=== PATIENT | female | born 1980 | race African-American/Black ===

== ENCOUNTER 2017-05-27 12:30 | Inpatient (IN) | payer OTHER ==
--- NOTE | ~2017-05-27 | US49 ---
[facility] A Service of [facility] RADIOLOGY TEXT RESULTS PATIENT: ALENA WELLER LOCATION: A : [birth year] UNIT #: [id number] AGE: [address]: Geovanna Stevens MD SEX: F ORDER DR: [id number] [facility] [address] [place], [place] [address] [id number] I MR#: [id number] Acc #: [id number] NAME: ALENA WELLER : 1980 SEX: F STUDY DATE/TIME: 05/27/2017 14:52 UNIT: [facility] ROOM: [facility] STUDY DESCRIPTION: US Extremity Non Vasc Complete Attending Physician: Geovanna Stevens M.D. Referring Physician: Geovanna Stevens M.D. Ordering Physician: Francesco Lima M.D. Primary Care Physician: Geovanna Stevens M.D. MEDICAL IMAGING REPORT This report is preliminary unless electronic signature is present EXAM Ultrasound extremity, nonvascular complete. HISTORY Find abscess. Right axilla abscess x1 month with pain. No drainage. TECHNIQUE/FINDINGS Real-time ultrasonography of the right axilla was performed. In the area of palpable abnormality indicated by the patient, there is an irregularly contoured collection with internal debris/low-level echoes. It measures about 4.26 cm x 4.25 cm x 2.66 cm. Given the patient's stated history, this would be consistent with abscess. In the appropriate clinical context, other types of fluid collections could be considered including evolving hematoma. Doppler interrogation not utilized. Prior to any intervention, consider assessment with Doppler imaging to assess vascularity in this region. IMPRESSION 1. Irregularly marginated subcutaneous collection in the right axilla in the area of palpable abnormality indicated by the patient measuring 4.26 cm x 4.25 cm x 2.66 cm. It contains extensive diffuse low-level echoes. Given the patient's stated history, this is consistent with subcutaneous axillary abscess. In the appropriate clinical context, other etiologies of this complicated fluid could be considered. NOTE Doppler interrogation was not performed. Prior to any intervention, Doppler assessment may be useful to assess for regional vascularity. Dictated by... Kennedy Villasenor M.D. [facility] A Service of [facility] RADIOLOGY TEXT RESULTS PATIENT: ALENA WELLER LOCATION: [facility] 233-01 : [birth year] UNIT #: [id number] AGE: [address]: Geovanna Stevens MD SEX: F ORDER DR: THIS IS AN ELECTRONICALLY VERIFIED REPORT Kennedy Villasenor M.D. at 05/27/2017 10:43 PM Matt TD: 05/27/2017 18:10 JOB #: [id number] MEDICAL IMAGING REPORT Page 1 of 1 COPY
--- NOTE | ~2017-05-27 | DS ---
Unit #: [id number] #: [id number] Patient: ALENA WELLER [id number] [address] [place], [place] [address] [id number] I MR#: [id number] NAME: ALENA WELLER ROOM: 233 Age: 36 Sex: F Admission Date: 05/27/2017 : 1980 Discharge Date: Attending Physician: Geovanna Stevens M.D. Referring Physician: Geovanna Stevens M.D. Primary Care Physician: Geovanna Stevens M.D. DISCHARGE SUMMARY DISCHARGE DIAGNOSES 1. Right axillary abscess status post I and D per surgery; status post negative wound culture; was treated with IV Vancomycin and Zosyn in the hospital; will be discharging on p.o. Augmentin for seven more days. 2. History of hypertension, stable, not on any medications at this point. 3. Anemia of chronic disease, stable. Discharge hemoglobin and hematocrit 9.2 and 27.8. 4. Hyponatremia, discharging with p.o. fluid restriction to 1.5 liters per day. Patient is to follow up with primary care physician next Thursday to check BMP. DISCHARGE MEDICATIONS 1. Augmentin 875 mg p.o. b.i.d. for seven days 2. Roulette 7.5/325 one tablet every 4 p.r.n., prescription written by surgery DISPOSITION Going home with home health for wound care. Outpatient follow up with primary care physician in 2-3 days, preferably next Thursday. Again, to check BMP and sodium level. HISTORY OF PRESENT HOSPITAL STAY AND ACTIVE PROBLEMS Please see H and P done by me for initial presentation of this female. Active problems diagnosed: 1. Right axillary abscess status post surgery evaluation, status post I and D as above. Negative culture. Patient with low-grade fever at 99. Clear per surgery to be discharged with local wound care; will be discharged on p.o. Augmentin, again status post IV Zosyn and Vancomycin for two days. 2. History of hypertension, currently stable. Not on any blood pressure medications. Monitor. Outpatient follow up with primary. 3. Hyponatremia. Restrict p.o. fluids to 1.5 liters per day. Check BMP next Thursday at primary care physician's office. 4. Anemia of chronic disease. Most likely on top of dilutional effect secondary to IV fluids. Discharge hemoglobin and hematocrit 9.2 and 27.8. Baseline around 10. Outpatient follow up with the primary care physician for monitoring. PLAN/INSTRUCTIONS Disposition as above. Discharge medicines as above. Unit #: [id number] #: [id number] Patient: ALENA WELLER Dictated by... Pasha Luong M.D. OC/to TD: 05/29/2017 19:43 JOB #: [id number] DISCHARGE SUMMARY Page 1 of 1 X Pasha Luong MD X DISCHARGE SUMMARY
--- NOTE | ~2017-05-27 | OR ---
Unit #: [id number] #: [id number] Patient: ALENA WELLER [id number] [address] [place], [place] [address] [id number] MR#: [id number] NAME: ALENA WELLER ROOM: 233 Date of Procedure: 05/28/2017 Admission Date: 05/27/2017 Surgeon: Francesco Lima M.D. : 1980 Attending Physician: Geovanna Stevens M.D. Referring Physician: Geovanna Stevens M.D. Primary Care Physician: Geovanna Stevens M.D. OPERATIVE REPORT PREOPERATIVE DIAGNOSIS Right axillary abscess. POSTOPERATIVE DIAGNOSIS Right axillary abscess. PROCEDURE PERFORMED Incision and drainage of right axillary abscess with sharp excisional debridement of skin and subcutaneous tissue. ANESTHESIA General LMA anesthesia with 0.5% Marcaine plain local anesthesia. FINDINGS The patient had a large abscess in the right axilla. It was incised and drained and some of the overlying skin was very thin and appeared to have generous blood supply. This was sharply excised circumferentially. SPECIMENS Sent to Pathology as well as Microbiology. COMPLICATIONS None apparent. CONDITION The patient tolerated the procedure well. INDICATIONS FOR PROCEDURE The patient is a 36-year-old black female, who has had a persistent abscess in the right axilla. She presents at this time for incision and drainage. DESCRIPTION OF PROCEDURE After obtaining informed consent as well as receiving scheduled antibiotics, the patient was brought to the operating room and after adequate general LMA anesthesia was obtained, had a right axilla prepped and draped in a sterile fashion. The area was aspirated with a 21-gauge needle and the area of the abscess cavity was localized. An incision was made over the abscess cavity and a large amount of purulent material was evacuated. The incision was extended to unroof the abscess cavity. Cultures were sent. Loculations were broken up. The overlying skin was very thin and appeared to have generous blood supply and some of the skin Unit #: [id number] #: [id number] Patient: ALENA WELLER and subcutaneous tissues were sharply debrided with a scalpel and sent to Pathology for specimen as well. The wound was irrigated, hemostasis was obtained with Bovie, infiltrated with 0.5% Marcaine plain local anesthesia and was packed with a saline soaked 4x4. A dry dressing was applied and tape. Needle counts, sponge counts, and instrument counts were all correct as reported by the scrub nurse x2. The patient went from the operating room to the recovery room in stable condition. Dictated by... Loraine Victoria/kay TD: 05/29/2017 00:02 JOB #: [id number] [facility] OPERATIVE REPORT Page 1 of 1 X Francesco Lima MD X PROCEDURE OPERATIVE NOTE
--- NOTE | ~2017-05-27 | HP ---
Unit #: [id number] #: [id number] Patient: ALENA VALLE [id number] [address] [place], [place] [address] [id number] I MR#: [id number] NAME: ALENA VALLE. ROOM: 233 Age: 36 Sex: F Admission Date: 05/27/2017 : 1980 Attending Physician: Geovanna Stevens M.D. Referring Physician: Geovanna Stevens M.D. Primary Care Physician: Geovanna Stevens M.D. HISTORY AND PHYSICAL ADMISSION DIAGNOSES 1. Right axillary abscess 2. Hypertension HISTORY OF PRESENT ILLNESS Ms. Valle is a 36-year-old female with a known history of scoliosis and hypertension, was direct admission from her primary care, Dr. Geovanna Stevens, secondary to a right axillary abscess. Apparently the patient had pain and induration with erythema, was treated with p.o. antibiotics without results and she was directly admitted for surgical evaluation. She denies any other symptoms. Denies any chest pain, shortness of air, dyspnea, nausea or vomiting, diarrhea or abdominal pain, with some subjective fevers. REVIEW OF SYSTEMS A 12-point review of systems on this patient is basically negative except as above in HPI. PAST MEDICAL HISTORY Significant for scoliosis and hypertension. PAST SURGICAL HISTORY Significant for back surgeries. HOME MEDICATIONS I do not have in front of me, but this will be acquired at the pharmacy and the patient will be restarted accordingly. ALLERGIES No known drug allergies. SOCIAL HISTORY No current history of tobacco, alcohol, or illicit drugs. FAMILY HISTORY Unremarkable. PHYSICAL EXAMINATION GENERAL: Patient is a 36-year-old female in no acute distress. VITAL SIGNS: BP 111/64, heart rate 67, respirations 18, temperature 97.4. HEENT: Head is atraumatic. Pupils equal, round, and reactive to light and accommodation. Extraocular muscles intact. Oropharynx clear. NECK: Supple. No masses. No JVD. No bruits. CHEST: Diminished at the bases, but generally clear. Unit #: [id number] #: [id number] Patient: ALENA VALLE CARDIOVASCULAR: S1, S2. No murmurs. ABDOMEN: Soft, nontender, nondistended. EXTREMITIES: Lower extremities show no clubbing, cyanosis or edema. Right axillary area with 4 x 6 cm area of errythema with induration and tenderness. NEUROLOGIC: Patient grossly intact. No focal deficits. DIAGNOSTIC STUDIES LABORATORY: White count 8.4, hemoglobin 11.1 and hematocrit 33.8. Chemistries significant for blood glucose 129. ASSESSMENT AND PLAN 1. Right axillary abscess, status post surgery evaluation, status post I and D. Continue supportive care and symptomatic management. Continue local wound care. Continue Vancomycin and Zosyn. 2. History of hypertension, not on any medications. 3. History of scoliosis status post back surgery. 4. Gastrointestinal induced prophylaxis. Continue Lovenox. Start on Protonix. Dictated by Pasha Luong M.D. OC/to TD: 05/28/2017 21:35 JOB #: [id number] HISTORY AND PHYSICAL Page 1 of 1 X Pasha Luong MD X HISTORY AND PHYSICAL
--- NOTE | ~2017-05-27 | CO ---
Unit #: [id number] #: [id number] Patient: ALENA VALLE [id number] [address] [place], [place] [address] [id number] I MR#: [id number] NAME: ALENA VALLE ROOM: 233 Age: 36 Sex: F Admission Date: 05/27/2017 : 1980 Attending Physician: Geovanna Stevens M.D. Primary Care Physician: Geovanna Stevens M.D. Consultation Date: 05/27/2017 CONSULTATION REPORT REASON FOR CONSULTATION Erythema and induration of right axilla. HISTORY OF PRESENT ILLNESS Thank you very much for asking us to see Ms. Valle. She is a 36-year-old black female, who presents at this time with a three-week history of erythema and induration of the right axilla. It has persisted through two rounds of oral antibiotics and has worsened in the last several days. She has no history of trauma. She had a similar episode in the past which resolved with antibiotics. She has never had a problem with the left axilla. She has no problems with her groin creases or any other areas. She has had no fevers or chills. No nausea, vomiting. No GI bleeding. She presents at this time for further evaluation and treatment. ALLERGIES No known medical allergies. MEDICATIONS Please see med rec sheet. PAST MEDICAL HISTORY None. PAST MEDICAL HISTORY Noncontributory. FAMILY HISTORY Noncontributory. SOCIAL HISTORY No tobacco or alcohol use. IMMUNIZATION STATUS Unknown. REVIEW OF SYSTEMS Negative except for above. PHYSICAL EXAMINATION GENERAL: A well-developed, well-nourished, black female in no apparent distress. Awake, alert, and oriented x3. VITAL SIGNS: Afebrile. Vital signs stable. HEENT: Sclerae nonicteric. Extraocular movements are intact. BACK: No CVA or spinous tenderness. Unit #: [id number] #: [id number] Patient: ALENA VALLE ABDOMEN: Soft, nontender. EXTREMITIES: Examination of her right axilla reveals a 4 x 6 cm area of erythema. It is tender. There is some induration. We cannot tell if there is any area of fluctuance or an abscess present. There is no drainage. DIAGNOSTIC STUDIES LABORATORY: Laboratory studies are pending at this time. IMPRESSION A 36-year-old black female with erythema, induration of the right axilla for several weeks which has worsened. We have recommended IV fluids, IV antibiotics, and ultrasound to see if an abscess is present. If so, she will need incision and drainage. All has been fully explained to the patient and to her in detail. They understand completely and request to proceed. Dictated by... Loraine Victoria/abraham TD: 05/27/2017 16:59 JOB #: [id number] CC: [facility] CONSULTATION REPORT Page 1 of 1 X Francesco Lima MD X CONSULTATION REPORT
[~2017-05-27 12:30] MED LIST: HYDROCODON-ACE1 EAC7 PO; METOPROLOL SUCC50 MG PO; MULTI VITAMIN1 EACH PO; NAPROSYN500 MG PO; NAPROXEN375 MG PO; PERCOCET 10/31 UDTA1 PO; VITAL-D RX TABL1 TAB PO
[2017-05-27 13:55] LABS: HEMATOCRIT 33.8 % (35.0-45.0); HEMOGLOBIN 11.1 gm/dL (12.0-16.0); MEAN CELL VOLUME 82.5 FL (83-96); MEAN CORPUSCULAR HEMOGLOBIN 27.1 PG (28-34); MEAN CORPUSCULAR HGB CONC 32.9 g/dL (30-36); MEAN PLATELET VOLUME 6.6 FL (6.5-11.5); RED BLOOD COUNT 4.1 X10e (3.90-5.30); RED CELL DISTRIBUTION WIDTH 13.3 % (11.0-15.5); WHITE BLOOD COUNT 8.4 X10e3 (4.0-10.5)
[2017-05-27 14:19] LABS: BILIRUBIN,TOTAL 0.3 mg/dL (0.2-2.0); CREATININE SERUM 0.9 mg/dL (0.6-1.4); GLOM FILT RATE Estimated 94.1 mL/min (>60); POTASSIUM 3.8 mmol/L (3.5-5.1); PROTEIN TOTAL SERUM 8.4 g/dL (6.0-8.3)
[2017-05-28 07:35] LABS: CALCIUM SERUM 8.4 mg/dL (8.4-10.2); GLOM FILT RATE Estimated 82.8 mL/min (>60); POTASSIUM 4.2 mmol/L (3.5-5.1)
[2017-05-29 03:08] LABS: BASOPHIL# 0.1 X10e3 (0-0.3); BASOPHIL% 1.1 % (0-2.5); EOSINOPHIL# 0.3 X10e3 (0-0.7); EOSINOPHIL% 7.1 % (0.0-7.0); HEMATOCRIT 27.8 % (35.0-45.0); HEMOGLOBIN 9.2 gm/dL (12.0-16.0); LYMPHOCYTE# 1.8 X10e3 (1.0-3.5); LYMPHOCYTE% 37.4 % (17.0-45.0); MEAN CELL VOLUME 82.1 FL (83-96); MEAN CORPUSCULAR HEMOGLOBIN 27.2 PG (28-34); MEAN CORPUSCULAR HGB CONC 33.1 g/dL (30-36); MEAN PLATELET VOLUME 6.3 FL (6.5-11.5); MONOCYTE# 0.5 X10e3 (0-1.0); MONOCYTE% 9.6 % (3.0-12.0); NEUTROPHIL# 2.2 X10e3 (1.5-7.1); NEUTROPHIL% 44.8 % (40-75); PLATELET COUNT 325 X10e3 (140-420); RED BLOOD COUNT 3.38 X10e (3.90-5.30); RED CELL DISTRIBUTION WIDTH 13.1 % (11.0-15.5); WHITE BLOOD COUNT 4.8 X10e3 (4.0-10.5)
[2017-05-29 03:09] LABS: DIFF IND NO
[2017-05-29 03:26] LABS: BUN/CREATININE RATIO 6.36; CALCIUM SERUM 7.6 mg/dL (8.4-10.2); CREATININE SERUM 1.1 mg/dL (0.6-1.4); GLOM FILT RATE Estimated 73.8 mL/min (>60); POTASSIUM 3.6 mmol/L (3.5-5.1)
[2017-05-29] MEDS ORDERED: TYL325 PO (19:01)
[2017-05-29] MEDS ORDERED: LORTAB 7.5-3251 EACH PO (19:02)
[2017-05-29] MEDS ORDERED: AUGMENTIN PO (19:02)
== END 2017-05-29 19:30 | disposition home or self-care (01) | DRG 571 ==
LOC: C2A 12:30
PROVIDERS: Physician Assistant Medical; Surgery
PROC: 0JBD0ZZ Excision of Right Upper Arm Subcutaneous Tissue and Fascia, Open Approach (ICD-10-PCS; principal; 2017-05-28 09:00)
DX: L02.411 Cutaneous abscess of right axilla (principal); E87.1 Hypo-osmolality and hyponatremia; I10 Essential (primary) hypertension; M41.9 Scoliosis, unspecified; L73.2 Hidradenitis suppurativa; D64.89 Other specified anemias
CPT/HCPCS: 76881; 80048; 80053; 80202; 83036; 84703; 85025; 85027; 87040; 87070; 87075; 87205; 88304; 94760; J1170; J1650; J1885; J2250; J2405; J2543; J2550; J2765; J3010; J3370